=== PATIENT | female | born 1990 | race African-American/Black ===

== ENCOUNTER 2016-04-11 18:30 | Emergency (ER) | payer OTHER ==
[2016-04-11 18:41] VITALS: BP 142/73; PULSE 70; TEMP 98.1; BMI 31.8
== END 2016-04-11 20:03 | disposition left against medical advice (07) ==
LOC: JER 18:30
DX: Z53.21 Procedure and treatment not carried out due to patient leaving prior to being seen by health care provider (principal)
CPT/HCPCS: 99283-25

== ENCOUNTER 2020-02-19 00:17 | Emergency (ER) | payer OTHER ==
[2020-02-19 00:51] VITALS: BMI 31.8
[2020-02-19] MEDS ORDERED: SODIUM CHLORIDE 1,000 ML IV STA (01:54)
[2020-02-19] MEDS ORDERED: METOCLOPRAMIDE HCL INJECTION 10 MG/2 ML VIAL ONE (02:03)
[2020-02-19] MEDS ORDERED: METOCLOPRAMIDE HCL INJECTION 10 MG/2 ML VIAL IVPUSH ONE (02:11)
[2020-02-19 02:17] LABS: HEMATOCRIT 36.1 % (32.4-45.2); HEMOGLOBIN 11.8 GM/dL (10.7-15.3); MCH 27.1 pg (25.7-33.7); MCHC 32.7 g/dl (32.0-36.0); MEAN PLT VOLUME 9.6 fl (7.5-11.1); RBC 4.35 M/mm3 (3.60-5.2); RDW 13.5 % (11.6-15.6)
[2020-02-19 02:28] LABS: POTASSIUM 3.5 mmol/L (3.5-5.1)
[2020-02-19 02:32] LABS: ALBUMIN 4.4 g/dl (3.4-5.0); BLOOD UREA NITROGEN 9.8 mg/dL (7-18); CALCIUM 9.5 mg/dL (8.5-10.1)
[2020-02-19 02:33] LABS: CREATININE 0.7 mg/dL (0.55-1.3)
[2020-02-19 02:35] LABS: BILIRUBIN,TOTAL 1.2 mg/dL (0.2-1); TOT PROT 8.2 g/dl (6.4-8.2)
[2020-02-19 03:27] LABS: BASO % 0.7 % (0-2.0); EOS % 0.1 % (0-4.5); HEMATOCRIT 32.7 % (32.4-45.2); HEMOGLOBIN 10.6 GM/dL (10.7-15.3); LYMPH % 18.4 % (8-40); MCHC 32.5 g/dl (32.0-36.0); MEAN CELL VOLUME 83.3 fl (80-96); MEAN PLT VOLUME 8.9 fl (7.5-11.1); MONO % 6.1 % (3.8-10.2); NEUT % 74.7 % (42.8-82.8); RBC 3.92 M/mm3 (3.60-5.2); RDW 13.5 % (11.6-15.6); WHITE BLOOD COUNT 8.2 K/mm3 (4.0-10.0)
[2020-02-19 03:45] LABS: INR 1.14 (0.83-1.09)
[2020-02-19 04:05] LABS: PH,URINE 6.5 (5.0-8.0); URINE APPEARANCE CLEAR; URINE BILIRUBIN NEGATIVE (NEGATIVE); URINE COLOR YELLOW; URINE GLUCOSE (UA) NEGATIVE (NEGATIVE); URINE KETONE 4+ (NEGATIVE); URINE LEUK ESTERASE NEGATIVE (NEGATIVE); URINE NITRITE NEGATIVE (NEGATIVE); URINE PROTEIN NEGATIVE (NEGATIVE)
[2020-02-19 05:04] VITALS: BP 118/74; PULSE 80; TEMP 98.6
[2020-02-19 05:35] LABS: EOS % 0.5 % (0-4.5); LYMPH % 16.3 % (8-40); NEUT % 78.6 % (42.8-82.8); PLATELET COUNT 189 K/MM3 (134-434)
[2020-02-19 05:36] LABS: BASO % 0.6 % (0-2.0)
[2020-02-19 05:40] LABS: PLATELET ESTIMATE ADEQUATE
[2020-02-19 05:44] LABS: PLATELET COUNT 189 K/MM3 (134-434)
[2020-02-19] MEDS ORDERED: PYRIDOXINE HCL (B-6) 50 MG TABLET (FP) PO SCH (10:00)
== END 2020-02-19 05:04 | disposition home or self-care (01) ==
LOC: JER 00:17
PROC: 3E033GC Introduction of Other Therapeutic Substance into Peripheral Vein, Percutaneous Approach (ICD-10-PCS; principal; 2020-02-19)
PROC: 3E0337Z Introduction of Electrolytic and Water Balance Substance into Peripheral Vein, Percutaneous Approach (ICD-10-PCS; 2020-02-19)
DX: O21.1 Hyperemesis gravidarum with metabolic disturbance (principal); O30.041 Twin pregnancy, dichorionic/diamniotic, first trimester; Z3A.01 Less than 8 weeks gestation of pregnancy
CPT/HCPCS: 36415; 76817-TC; 80053; 81003; 83690; 84702; 85025; 85610; 85730; 99284-25